=== PATIENT | female | born 1990 | race Caucasian/White ===

== ENCOUNTER 2021-01-16 11:46 | Emergency (ER) | payer OTHER ==
[~2021-01-16] VITALS: Ht 139.7 cm; Wt 49.4 kg
[2021-01-16] MEDS ORDERED: BACTRIM DS TAB1 EAC1 PO (11:58)
[2021-01-16 13:22] LABS: URINE BLOOD 1+ (Negative); URINE CLARITY CLEAR; URINE COLOR YELLOW; URINE GLUCOSE-RANDOM NEGATIVE (Negative); URINE KETONES TRACE (Negative); URINE LEUKOCYTES-REFLEX TRACE (Negative); URINE NITRITE-REFLEX NEGATIVE (Negative); URINE PROTEIN TRACE (Negative); URINE SPECIFIC GRAVITY >= 1.030 (1.005-1.030); URINE UROBILINOGEN 0.2 E.U./dl (0.2-1.0)
[2021-01-16 13:34] LABS: URINE BILIRUBIN 2+ (Negative)
[2021-01-16 13:35] LABS: ICTOTEST (BILI CONFIRMATORY) Negative (Negative)
[2021-01-16 13:40] LABS: ABSOLUTE EOSINOPHILS 0.1 thou/uL (0.0-0.7); ABSOLUTE LYMPHOCYTES 1.2 thou/uL (0.8-5.3); ABSOLUTE MONOCYTES 1.4 thou/uL (0.0-1.2); ABSOLUTE NEUTROPHILS 8.7 thou/uL (1.6-8.1); BASOPHILS 0.2 %; HEMATOCRIT 38.7 % (37.0-47.0); HEMOGLOBIN 12.9 gm/dL (12.0-15.0); LYMPHOCYTES 10.7 %; MCH 27.2 pg (26.0-34.0); MCHC 33.2 g/dL (28.0-37.0); MONOCYTES 12.1 %; MPV 7.1 fl. (7.2-11.1); NUCLEATED RBCS 0 /100WBC; PLATELET COUNT* 198 thou/uL (150-400); RBC 4.72 mil/uL (4.20-5.00); WBC 11.5 thou/uL (4.0-11.0)
[2021-01-16 13:41] LABS: SQUAMOUS >10 Many /LPF (0-3)
[2021-01-16 13:42] LABS: CASTS None Seen /LPF (None Seen)
[2021-01-16 13:43] LABS: BACTERIA-REFLEX 1-9 Few /HPF (None Seen); CRYSTALS None Seen /LPF (None Seen); URINE RBC 0-2 Rare /HPF (0-2); URINE WBC-REFLEX >25 Many /HPF (0-5)
[2021-01-16 14:48] LABS: CALCIUM 8.1 mg/dL (8.5-10.1); CREATININE 0.8 mg/dL (0.6-1.3); POTASSIUM 3.2 mmol/L (3.5-5.1)
[2021-01-16 14:53] LABS: ALBUMIN 2.8 g/dL (3.4-5.0); TOTAL BILIRUBIN 0.4 mg/dL (<0.1-1.0); TOTAL PROTEIN 7.2 g/dL (6.4-8.2)
[2021-01-16] MEDS ORDERED: HYOSCYAMINE0.125 MG PO (17:21)
[2021-01-16] MEDS ORDERED: PHENERGAN 25 MG25 M1 PO (17:21)
[2021-01-16 17:36] VITALS: BP 145/70
== END 2021-01-16 17:36 | disposition home or self-care (01) ==
LOC: M.ERS 11:46
PROVIDERS: Nurse Practitioner Family
DX: N83.201 Unspecified ovarian cyst, right side (principal); R19.7 Diarrhea, unspecified; Z90.49 Acquired absence of other specified parts of digestive tract; Z98.51 Tubal ligation status; Z79.899 Other long term (current) drug therapy; Z88.8 Allergy status to other drugs, medicaments and biological substances